=== PATIENT | male | born 1945 | race Caucasian/White ===

== ENCOUNTER 2017-09-19 05:07 | Emergency (ER) | payer MEDICARE, OTHER ==
--- NOTE | 2017-09-19 06:24 | EDM.PDOC ---
ED HPI GENERAL MEDICAL PROBLEM - General Chief Complaint: General Stated Complaint: CONFUSED Time Seen by Provider: 09/19/17 05:50 Source of Information: Reports: Patient History Limitations: Reports: No Limitations - History of Present Illness INITIAL COMMENTS - FREE TEXT/NARRATIVE: c/o confusion acute on chronic confusion pt had a left cardotid endarterectomy 1.5y ago, no sxs, arranged after a routine exam and a number of months notes pt with memory problems 1y ago, got mixed up as to day of week at times and holidays works driving for [employer] altho has been doing more driving recently do mild confusion pt up in middle of night 2d ago and turned on lights at 1 AM and got ready for work even though it was too early, he slept for an hour and then got up again to go to work altho it was still too early today the same thing happened, he was up at 4 AM, he could not remember when he was supposed to go to work (8 AM) here he has confusion above some recent and remote issues has had a cough x 1m, saw PCP Dr Nick yesterday, dx with probably postnasal drip, no new meds Rx'ed has seen Dr Floyd, director of [facility] x 1y atho w/u for CA was neg 1y ago, she has evaluated him for CKD of unknown etiology, has been getting Fe infusion q3m and B12 IM q1m h/o SD and stent x 1 retired college [employer], works 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, now works x 3y driving parts for [employer], deanna that has not been a problem has had a tickle in his throat x 1y d/t see application services manager Dr Borden 11/26 pt forgot how to heat up his water for his CPAP machine which he "has done thousands of time" also sees a manager commercial sales from [place] Dr Reyes, reports kidney function is between 46 and 51, is on metformin 850 mg TID [facility] was contacted, they fax'ed labs and CxR from yesterday, A1C 5.1 , vit B12, CxR no acute process c/w 5y ago, nl heart size and shape no labs or XR in [place] not going to work today, I told that pt could not work today and could not drive until cleared by PCP no other sxs except C, throat tickle and memory problems EKG today with SR 72, RBBB, early RWP with R in V3 28 mm, S in V5 8 m, no acute changes, SD 254 mm, no comparison - Related Data Allergies Allergy/AdvReac Type Severity Reaction Status Date / Time Penicillins Allergy Rash Verified 09/19/17 05:26 Home Meds: Home Meds Aspirin 81 mg PO DAILY 09/19/17 [History] Clopidogrel [Plavix] 75 mg PO DAILY 09/19/17 [History] Cyanocobalamin (Vitamin B12) [Vitamin B12] 1,000 mcg IM ASDIRECTED 09/19/17 [ History] Fenofibrate 160 mg PO DAILY 09/19/17 [History] Ferrous Sulfate 325 mg PO BID 09/19/17 [History] Folic Acid 1 mg PO DAILY 09/19/17 [History] Lisinopril 10 mg PO DAILY 09/19/17 [History] Meclizine [Antivert] 25 mg PO TID 09/19/17 [History] Simvastatin 40 mg PO DAILY 09/19/17 [History] acetaZOLAMIDE [Diamox] 250 mg PO BID 09/19/17 [History] metFORMIN [Glucophage] 850 mg PO TID 09/19/17 [History] Past Medical History HEENT History: Reports: Hard of Hearing, Impaired Vision Other HEENT History: on hearing aids, Menier's Dse Cardiovascular History: Reports: Angina, High Cholesterol, Hypertension, SD, Stents Respiratory History: Reports: Sleep Apnea Other Respiratory History: on CPAP Endocrine/Metabolic History: Reports: Diabetes, Type II Hematologic History: Reports: Anemia - Past Surgical History GI Surgical History: Reports: Appendectomy Social & Family History - Family History Family Medical History: Unobtainable - Tobacco Use Smoking Status *Q: Former Smoker Used Tobacco, but Quit: Yes Month/Year Tobacco Last Used: 20 - Caffeine Use Caffeine Use: Reports: Coffee, Tea - Recreational Drug Use Recreational Drug Use: No ED ROS GENERAL - Review of Systems Review Of Systems: See Below Constitutional: Reports: No Symptoms HEENT: Reports: No Symptoms Respiratory: Reports: No Symptoms Cardiovascular: Reports: No Symptoms Endocrine: Reports: No Symptoms GI/Abdominal: Reports: No Symptoms : Reports: No Symptoms Musculoskeletal: Reports: No Symptoms Skin: Reports: No Symptoms Neurological: Reports: Confusion Psychiatric: Reports: No Symptoms Hematologic/Lymphatic: Reports: No Symptoms Immunologic: Reports: No Symptoms ED EXAM, GENERAL - Physical Exam Exam: See Below Exam Limited By: No Limitations General Appearance: Alert, WD/WN, No Apparent Distress, Other (bland affect, difficulty answering most questions, knew year right away, took 10 seconds to name month, new day and date only be looking at watch, knew he was in hospital, could not tell me the name of the hospital, could not remember when he was supposed to go to work today) Eye Exam: Bilateral Eye: EOMI, Normal Inspection, PERRL Ears: Normal External Exam, Normal Canal, Hearing Grossly Normal, Normal TMs, Hearing Loss, Other (hearing aides b/l) Ear Exam: Bilateral Ear: Auricle Normal, Canal Normal, TM normal Nose: Normal Inspection, Normal Mucosa, No Blood Throat/Mouth: Normal Inspection, Normal Lips, Normal Teeth, Normal Gums, Normal Oropharynx, Normal Voice, No Airway Compromise Head: Atraumatic, Normocephalic Neck: Normal Inspection, Supple, Non-Tender, Full Range of Motion, Other (old vertical scar on L). No: Lymphadenopathy (R), Lymphadenopathy (L) Respiratory/Chest: No Respiratory Distress, Lungs Clear, Normal Breath Sounds, No Accessory Muscle Use, Chest Non-Tender Cardiovascular: Normal Peripheral Pulses, Regular Rate, Rhythm, No Edema, No Gallop, No Murmur, No Rub, Other (2+ DP pulses b/l, 2/6 INEZ at LSB, quiet precordium) GI/Abdominal: Soft, Non-Tender, No Distention Back Exam: Normal Inspection, Full Range of Motion, NT Extremities: Normal Inspection, Normal Range of Motion, Non-Tender, No Pedal Edema Neurological: Alert, CN II-XII Intact, Normal Reflexes, No Motor/Sensory Deficits, Other (biceps DTR 2+, difficulty following instructions for ALHAJI, no dysmetria, no tremor) Psychiatric: Flat Affect Skin Exam: Warm, Dry, Intact, Normal Color, No Rash Lymphatic: No Adenopathy Course - Vital Signs Last Recorded V/S: Last Vital Signs Temp 37.4 C 09/19/17 05:10 Pulse 88 09/19/17 05:10 Resp 18 09/19/17 07:24 BP 154/55 H 09/19/17 07:24 Pulse Ox 100 09/19/17 07:24 - Orders/Labs/Meds Orders: Active Orders 24 hr Category Date Time Status EKG Documentation Completion [RC] ASDIRECTED Care 09/19/17 06:35 Ordered Head wo Cont [CT] Stat Exams 09/19/17 07:26 Taken URINALYSIS W/MICROSCOPIC [UA W/MICROSCOPIC] [URIN] Stat Lab 09/19/17 06:26 Ordered EKG 12 Lead [EK] Routine Ther 09/19/17 06:35 Ordered Labs: Laboratory Tests 09/19/17 09/19/17 09/19/17 Range/Units 06:35 06:35 06:35 WBC 8.5 (4.5-12.0) X10-3/uL RBC 4.07 L (4.30-5.75) x10(6)uL Hgb 10.9 L (11.5-15.5) g/dL Hct 33.3 (30.0-51.3) % MCV 81.8 (80-96) fL MCH 26.8 L (27.7-33.6) pg MCHC 32.8 (32.2-35.4) g/dL RDW 15.4 (11.5-15.5) % Plt Count 197 (125-369) X10(3)uL MPV 7.6 (7.4-10.4) fL Neut % (Auto) 82.1 H (46-82) % Lymph % (Auto) 7.2 L (13-37) % [place] % (Auto) 10.4 (4-12) % Eos % (Auto) 0 L (1.0-5.0) % Baso % (Auto) 0 (0-2) % Neut # (Auto) 7.0 (1.6-8.3) # Lymph # (Auto) 0.6 (0.6-5.0) # [place] # (Auto) 0.9 (0.0-1.3) # Eos # (Auto) 0.0 (0.0-0.8) # Baso # (Auto) 0.0 (0.0-0.2) # PT 11.2 H (8.7-11.1) INR 1.11 (0.89-1.13) Sodium 130 L (135-145) mmol/L Potassium 3.5 (3.5-5.3) mmol/L Chloride 99 L (100-110) mmol/L Carbon Dioxide 19 L (21-32) mmol/L BUN 20 H (7-18) mg/dL Creatinine 1.4 H (0.70-1.30) mg/dL Est Cr Clr Drug Dosing 50.76 mL/min Estimated GFR (MDRD) 50 L (>60) BUN/Creatinine Ratio 14.3 (9-20) Glucose 108 (80-116) mg/dL Calcium 8.7 (8.6-10.2) mg/dL Total Bilirubin 0.4 (0.1-1.3) mg/dL AST 25 (5-25) IU/L ALT 21 (12-36) U/L Alkaline Phosphatase 38 L (56-112) IU/L Troponin I (<0.017-0.056) ng/mL C-Reactive Protein (0.5-0.9) mg/dL NT-Pro-B Natriuret Pep (<=125) pg/mL Total Protein 6.7 (6.0-8.0) g/dL Albumin 3.8 (3.2-4.6) g/dL Globulin 2.9 g/dL Albumin/Globulin Ratio 1.3 TSH, Ultra Sensitive (0.36-3.74) IU/mL Urine Color (YELLOW) Urine Appearance (CLEAR) Urine pH (5.0-6.5) Ur Specific [place] (1.010-1.025) Urine Protein (NEGATIVE) mg/dL Urine Glucose (UA) (NEGATIVE) mg/dL Urine Ketones (NEGATIVE) mg/dL Urine Occult Blood (NEGATIVE) Urine Nitrite (NEGATIVE) Urine Bilirubin (NEGATIVE) Urine Urobilinogen (NEGATIVE) mg/dL Ur Leukocyte Esterase (NEGATIVE) Urine WBC (0) Ur Squamous Epith Cells (NS,R,O) Urine Bacteria (NS) 09/19/17 09/19/17 09/19/17 Range/Units 06:35 06:35 06:35 WBC (4.5-12.0) X10-3/uL RBC (4.30-5.75) x10(6)uL Hgb (11.5-15.5) g/dL Hct (30.0-51.3) % MCV (80-96) fL MCH (27.7-33.6) pg MCHC (32.2-35.4) g/dL RDW (11.5-15.5) % Plt Count (125-369) X10(3)uL MPV (7.4-10.4) fL Neut % (Auto) (46-82) % Lymph % (Auto) (13-37) % [place] % (Auto) (4-12) % Eos % (Auto) (1.0-5.0) % Baso % (Auto) (0-2) % Neut # (Auto) (1.6-8.3) # Lymph # (Auto) (0.6-5.0) # [place] # (Auto) (0.0-1.3) # Eos # (Auto) (0.0-0.8) # Baso # (Auto) (0.0-0.2) # PT (8.7-11.1) INR (0.89-1.13) Sodium (135-145) mmol/L Potassium (3.5-5.3) mmol/L Chloride (100-110) mmol/L Carbon Dioxide (21-32) mmol/L BUN (7-18) mg/dL Creatinine (0.70-1.30) mg/dL Est Cr Clr Drug Dosing mL/min Estimated GFR (MDRD) (>60) BUN/Creatinine Ratio (9-20) Glucose (80-116) mg/dL Calcium (8.6-10.2) mg/dL Total Bilirubin (0.1-1.3) mg/dL AST (5-25) IU/L ALT (12-36) U/L Alkaline Phosphatase (56-112) IU/L Troponin I 0.034 (<0.017-0.056) ng/mL C-Reactive Protein 6.2 H* (0.5-0.9) mg/dL NT-Pro-B Natriuret Pep 523 H (<=125) pg/mL Total Protein (6.0-8.0) g/dL Albumin (3.2-4.6) g/dL Globulin g/dL Albumin/Globulin Ratio TSH, Ultra Sensitive 0.68 (0.36-3.74) IU/mL Urine Color Yellow (YELLOW) Urine Appearance Clear (CLEAR) Urine pH 6.0 (5.0-6.5) Ur Specific [place] 1.015 (1.010-1.025) Urine Protein Negative (NEGATIVE) mg/dL Urine Glucose (UA) Normal (NEGATIVE) mg/dL Urine Ketones Negative (NEGATIVE) mg/dL Urine Occult Blood Negative (NEGATIVE) Urine Nitrite Negative (NEGATIVE) Urine Bilirubin Negative (NEGATIVE) Urine Urobilinogen Normal (NEGATIVE) mg/dL Ur Leukocyte Esterase Negative (NEGATIVE) Urine WBC 0-5 (0) Ur Squamous Epith Cells Occasional (NS,R,O) Urine Bacteria Few H (NS) - Re-Assessments/Exams Free Text/Narrative Re-Assessment/Exam: 09/19/17 08:[address] neg, reviewed with pt and , labs without acute process identified, does have inc'd CRP 6.2 of uncertain clinical sig, no evidence of infection does have HF with inc'd BNP and Na 130, both likely chronic no comparison labs available reports that pt's 78 yo bro has severe dementia pt with likely early to moderate dementia Departure - Departure Time of Disposition: 08:24 Disposition: Admitted As Inpatient 66 Condition: Good Clinical Impression: Memory changes, Elevated C-reactive protein (CRP), Hyponatremia, Heart failure , Hyponatremia, Anemia - Discharge Information Referrals: Dylon Nick MD [Primary Care Provider] - Forms: ED Department Discharge Additional Instructions: Continue current meds. See Dr Nikc in next 2 days. No work or driving until cleared by Dr Nick to do so. Return to ED if you are feeling worse or develop additional symptoms. - My Orders Last 24 Hours: My Active Orders 09/19/17 06:26 URINALYSIS W/MICROSCOPIC [UA W/MICROSCOPIC] [URIN] Stat 09/19/17 06:35 EKG Documentation Completion [RC] ASDIRECTED EKG 12 Lead [EK] Routine 09/19/17 07:26 Head wo Cont [CT] Stat - Assessment/Plan Last 24 Hours: My Active Orders 09/19/17 06:26 URINALYSIS W/MICROSCOPIC [UA W/MICROSCOPIC] [URIN] Stat 09/19/17 06:35 EKG Documentation Completion [RC] ASDIRECTED EKG 12 Lead [EK] Routine 09/19/17 07:26 Head wo Cont [CT] Stat
== END 2017-09-19 08:46 | disposition critical access hospital (66) ==
LOC: FB.ED 05:07
DX: R41.3 Other amnesia (principal); I11.0 Hypertensive heart disease with heart failure; I50.9 Heart failure, unspecified; R79.82 Elevated C-reactive protein (CRP); E87.1 Hypo-osmolality and hyponatremia; E11.9 Type 2 diabetes mellitus without complications; I25.2 Old myocardial infarction; Z88.0 Allergy status to penicillin; Z79.82 Long term (current) use of aspirin; Z79.899 Other long term (current) drug therapy; Z79.84 Long term (current) use of oral hypoglycemic drugs; Z87.891 Personal history of nicotine dependence
CPT/HCPCS: 36415; 70450; 70551; 80053; 81001; 83880; 84443; 84484; 85025; 85610; 86140; 93005; 99284

== ENCOUNTER 2020-12-28 20:42 | Emergency (ER) | payer MEDICARE, OTHER ==
--- NOTE | 2020-12-28 21:47 | EDM.PDOC ---
ED HPI GENERAL MEDICAL PROBLEM - General Stated Complaint: PATIENT BELIEVES THEY HAVE BLOOD COT Time Seen by Provider: 12/28/20 20:42 Source of Information: Reports: Patient, Family History Limitations: Reports: No Limitations - History of Present Illness INITIAL COMMENTS - FREE TEXT/NARRATIVE: c/o R calf pain goes on treadmill 15 min 2x/d, on treadmill and had pain in R calf pt has Alzheimer's per with h/o DVT x 2, pt not on anticoagulants, no prior DVTs h/o NV x 1, h/o R carotid endarterectomy Left Posterior Leg Pain Score (Numeric/FACES): 7 - Related Data Allergies Allergy/AdvReac Type Severity Reaction Status Date / Time Penicillins Allergy Rash Verified 09/19/17 05:26 Home Meds: Home Meds Aspirin 81 mg PO DAILY 09/19/17 [History] Clopidogrel [Plavix] 75 mg PO DAILY 09/19/17 [History] Cyanocobalamin (Vitamin B12) [Vitamin B12] 1,000 mcg IM ASDIRECTED 09/19/17 [History] Fenofibrate 160 mg PO DAILY 09/19/17 [History] Ferrous Sulfate 325 mg PO BID 09/19/17 [History] Folic Acid 1 mg PO DAILY 09/19/17 [History] Lisinopril 10 mg PO DAILY 09/19/17 [History] Meclizine [Antivert] 25 mg PO TID 09/19/17 [History] Simvastatin 40 mg PO DAILY 09/19/17 [History] acetaZOLAMIDE [Diamox] 250 mg PO BID 09/19/17 [History] metFORMIN [Glucophage] 850 mg PO TID 09/19/17 [History] Past Medical History HEENT History: Reports: Hard of Hearing, Impaired Vision Other HEENT History: on hearing aids, Menier's Dse Cardiovascular History: Reports: Angina, High Cholesterol, Hypertension, NV, Stents Respiratory History: Reports: Sleep Apnea Other Respiratory History: on CPAP Endocrine/Metabolic History: Reports: Diabetes, Type II Hematologic History: Reports: Anemia - Past Surgical History GI Surgical History: Reports: Appendectomy Social & Family History - Family History Family Medical History: Unobtainable - Tobacco Use Tobacco Use Status *Q: Unknown Ever Used Tobacco - Caffeine Use Caffeine Use: Reports: None Review of Systems - Review of Systems Review Of Systems: See Below Constitutional: Reports: No Symptoms Eyes: Reports: No Symptoms Ears: Reports: No Symptoms Nose: Reports: No Symptoms Mouth/Throat: Reports: No Symptoms Respiratory: Reports: No Symptoms Cardiovascular: Reports: No Symptoms GI/Abdominal: Reports: No Symptoms Genitourinary: Reports: No Symptoms Musculoskeletal: Reports: Other (R calf pain) Skin: Reports: No Symptoms Neurological: Reports: No Symptoms Psychiatric: Reports: No Symptoms ED EXAM, GENERAL - Physical Exam Exam: See Below Exam Limited By: No Limitations General Appearance: Alert, WD/WN Ears: Normal External Exam Nose: Normal Inspection Throat/Mouth: Normal Inspection Head: Atraumatic Neck: Normal Inspection Respiratory/Chest: No Respiratory Distress, Lungs Clear, Normal Breath Sounds, Chest Non-Tender Cardiovascular: Regular Rate, Rhythm, No Edema GI/Abdominal: Soft Back Exam: Normal Inspection, Full Range of Motion Extremities: Normal Inspection, Normal Range of Motion, Non-Tender, No Pedal Edema, Other (muscular calves b/l c/w regular w/u on treadmill, no cords, no homans, no point tender, no edema, walks without limp) Neurological: Alert, No Motor/Sensory Deficits Psychiatric: Normal Affect, Normal Mood, Other (poor memory, gets mixed up) Skin Exam: Warm, Dry, Intact, Normal Color, No Rash Lymphatic: No Adenopathy Course - Vital Signs Last Recorded V/S: Last Vital Signs Temp 36.8 C 12/28/20 20:56 Pulse 48 L 12/28/20 20:56 Resp 18 12/28/20 20:56 BP 167/54 H 12/28/20 20:56 Pulse Ox 100 12/28/20 20:56 - Orders/Labs/Meds Labs: Laboratory Tests 12/28/20 12/28/20 12/28/20 Range/Units 21:00 21:00 21:00 WBC 6.9 (3.2-10.1) x10-3/uL RBC 3.41 L (3.90-5.90) x10(6)uL Hgb 9.9 L (12.9-17.7) g/dL Hct 28.4 L (38.3-50.1) % MCV 83.4 (80.8-98.7) fL MCH 29.1 (27.0-33.3) pg MCHC 34.8 (28.7-35.3) g/dL RDW 16.6 H (12.4-15.0) % Plt Count 175 (117-477) x10(3)uL MPV 7.9 (6.7-11.0) fL Neut % (Auto) 74.0 H (40.3-71.8) % Lymph % (Auto) 15.3 L (15.8-45.3) % [place] % (Auto) 7.8 (5.5-15.2) % Eos % (Auto) 2.4 (0.1-6.8) % Baso % (Auto) 0.5 (0.3-3.8) % Neut # (Auto) 5.1 (1.7-6.9) x10-3/uL Lymph # (Auto) 1.1 (0.5-4.5) x10-3/uL [place] # (Auto) 0.5 (0.0-1.2) x10-3/uL Eos # (Auto) 0.2 (0.0-0.6) x10-3/uL Baso # (Auto) 0.0 (0.0-0.3) x10-3/uL D-Dimer, Quantitative 0.42 (0.0-0.59) mg/LFEU Sodium 141 D (135-145) mmol/L Potassium 3.7 (3.5-5.3) mmol/L Chloride 102 (100-110) mmol/L Carbon Dioxide 26 (21-32) mmol/L BUN 23 H (7-18) mg/dL Creatinine 1.3 (0.70-1.30) mg/dL Est Cr Clr Drug Dosing 53.89 mL/min Estimated GFR (MDRD) 54 L (>60) BUN/Creatinine Ratio 17.7 (9-20) Glucose 131 H (80-116) mg/dL Calcium 9.0 (8.6-10.2) mg/dL Total Bilirubin 0.6 (0.1-1.3) mg/dL AST 14 D (5-25) IU/L ALT 19 (12-36) U/L Alkaline Phosphatase 75 (56-112) IU/L Total Protein 7.0 (6.0-8.0) g/dL Albumin 3.8 (3.2-4.6) g/dL Globulin 3.2 g/dL Albumin/Globulin Ratio 1.2 - Re-Assessments/Exams Free Text/Narrative Re-Assessment/Exam: 12/28/20 22:05 d-dimer neg, hx and PE and labs put DVT risk extremely low insisted on a RLE u/s which was ordered for tomorrow as u/s tech will be here tomorrow impatient throughout visit even though pt seen by myself as soon as registration put pt in room (prior to RN) and quite unhappy, asking what she should do it he has pain tonight yet had no pain or swell or tenderness, walked easily without discomfort state that they would not use heat as recommended, would not use apap as recommended, she provided no reason or rationale for declining this explanations asked for no clarification of medical recommendations, repeatedly stated her opinion and of what she wanted done written for RLE venous duplex u/s, Jose Angel PLATT materials engineering technician notified by phone by [facility] K[facility]D Departure - Departure Time of Disposition: 21:58 Disposition: Home, Self-Care 01 Condition: Good Clinical Impression: Right calf pain, Strain of right calf muscle - Discharge Information *PRESCRIPTION DRUG MONITORING PROGRAM REVIEWED*: Not Applicable *COPY OF PRESCRIPTION DRUG MONITORING REPORT IN PATIENT EMMA: Not Applicable Instructions: Muscle Strain Referrals: Dylon Nick MD [Primary Care Provider] - Additional Instructions: Use heat for 10 minutes 4 times a day for 2 days, longer if needed. Take acetaminophen 500 mg 2 tabs 4 times a day for 5 days, longer if needed. Radiology will call you tomorrow morning with a time for the ultrasound. Sepsis Event Note (ED) - Evaluation Sepsis Screening Result: No Definite Risk - Focused Exam Vital Signs: Vital Signs Temp Pulse Resp BP Pulse Ox 12/28/20 20:56 36.8 C 48 L 18 167/54 H 100
== END 2020-12-28 22:05 | disposition home or self-care (01) ==
LOC: FB.ED 20:42
DX: S86.911A Strain of unspecified muscle(s) and tendon(s) at lower leg level, right leg, initial encounter (principal); E78.00 Pure hypercholesterolemia, unspecified; I10 Essential (primary) hypertension; I25.2 Old myocardial infarction; E11.9 Type 2 diabetes mellitus without complications; D64.9 Anemia, unspecified; Z88.0 Allergy status to penicillin; Z79.82 Long term (current) use of aspirin; Z79.02 Long term (current) use of antithrombotics/antiplatelets; Z79.84 Long term (current) use of oral hypoglycemic drugs; Z79.899 Other long term (current) drug therapy; Z86.718 Personal history of other venous thrombosis and embolism; X58.XXXA Exposure to other specified factors, initial encounter; Y93.A1 Activity, exercise machines primarily for cardiorespiratory conditioning
CPT/HCPCS: 36415; 80053; 85025; 85379; 99283

== ENCOUNTER 2021-06-23 17:04 | Inpatient (IN) | payer MEDICARE, OTHER ==
[2021-06-23] MEDS ORDERED: Sodium Chloride 0.9% 10 ML Syringe FLUSH PRN (17:42)
[2021-06-23] MEDS ORDERED: Ondansetron 4 MG/2 ML SDV IV PRN (19:53)
[2021-06-23] MEDS ORDERED: Sodium Chloride 0.9% 1,000 ML IV SCH (20:00)
[2021-06-23] MEDS ORDERED: Ascorbic Acid 500 MG Tab PO SCH (21:00)
[2021-06-23] MEDS ORDERED: Donepezil 10 MG Tab PO SCH ×2 (21:00→21:45)
[2021-06-23] MEDS ORDERED: Ferrous Sulfate 325 MG Tab PO SCH (21:00)
[2021-06-23] MEDS: Enoxaparin 40 MG/0.4 ML Syringe SUBCUT SCH (21:56)
[2021-06-23] MEDS: ASCORBIC ACID 250 MG PO SCH (21:57)
[2021-06-23] MEDS: FERROUS SULFATE 325 MG PO SCH (21:57)
[2021-06-24] MEDS ORDERED: LORazepam 2 MG/ML SDV IM ONE (01:10)
[2021-06-24] MEDS ORDERED: OLANZapine 10 MG Vial IM ONE (01:15)
[2021-06-24] MEDS: FERROUS SULFATE 325 MG PO SCH (07:27)
[2021-06-24] MEDS: amLODIPine 10 MG Tab PO SCH (08:31)
[2021-06-24] MEDS: ASCORBIC ACID 250 MG PO SCH (08:37)
[2021-06-24] MEDS: Simvastatin 40 MG Tab PO SCH (08:39)
[2021-06-24] MEDS: Folic Acid 1 MG Tab PO SCH (08:39)
[2021-06-24] MEDS: Hydrochlorothiazide 12.5 MG Cap PO SCH (11:36)
[2021-06-24] MEDS ORDERED: Citalopram 20 MG Tab PO SCH (12:00)
[2021-06-24] MEDS ORDERED: LORazepam 1 MG Tab PO PRN (14:42)
[2021-06-24] MEDS: Cholecalciferol (Vitamin D3) 25 MCG Tab PO SCH (14:59)
[2021-06-24] MEDS: Thiamine 100 MG Tab PO SCH (14:59)
[2021-06-24] MEDS: Ferrous Sulfate 325 MG Tab PO SCH (18:23)
[2021-06-24] MEDS: Enoxaparin 40 MG/0.4 ML Syringe SUBCUT SCH (20:01)
[2021-06-24] MEDS: Haloperidol 5 MG Tab PO SCH (20:01)
[2021-06-24] MEDS: Donepezil 10 MG Tab PO SCH (20:01)
[2021-06-24] MEDS: Ascorbic Acid 500 MG Tab PO SCH (20:04)
[2021-06-24] MEDS ORDERED: QUEtiapine 25 MG Tab PO SCH (21:00)
[2021-06-25] MEDS: Ferrous Sulfate 325 MG Tab PO SCH ×2 (06:46→17:42)
[2021-06-25] MEDS: Cholecalciferol (Vitamin D3) 25 MCG Tab PO SCH (09:11)
[2021-06-25] MEDS: Simvastatin 40 MG Tab PO SCH (09:11)
[2021-06-25] MEDS: amLODIPine 10 MG Tab PO SCH (09:12)
[2021-06-25] MEDS: Thiamine 100 MG Tab PO SCH (09:13)
[2021-06-25] MEDS: Hydrochlorothiazide 12.5 MG Cap PO SCH (09:13)
[2021-06-25] MEDS: Folic Acid 1 MG Tab PO SCH (09:13)
[2021-06-25] MEDS: Ascorbic Acid 500 MG Tab PO SCH ×2 (09:14→21:05)
[2021-06-25] MEDS: Enoxaparin 40 MG/0.4 ML Syringe SUBCUT SCH (21:04)
[2021-06-25] MEDS: Haloperidol 5 MG Tab PO SCH (21:04)
[2021-06-25] MEDS: Donepezil 10 MG Tab PO SCH (21:04)
[2021-06-26] MEDS: Ferrous Sulfate 325 MG Tab PO SCH ×2 (06:29→17:26)
[2021-06-26] MEDS: Hydrochlorothiazide 12.5 MG Cap PO SCH (09:49)
[2021-06-26] MEDS: Cholecalciferol (Vitamin D3) 25 MCG Tab PO SCH (09:49)
[2021-06-26] MEDS: Folic Acid 1 MG Tab PO SCH (09:49)
[2021-06-26] MEDS: amLODIPine 10 MG Tab PO SCH (09:50)
[2021-06-26] MEDS: Ascorbic Acid 500 MG Tab PO SCH ×2 (09:51→20:46)
[2021-06-26] MEDS: Simvastatin 40 MG Tab PO SCH (09:54)
[2021-06-26] MEDS: Thiamine 100 MG Tab PO SCH (09:54)
[2021-06-26] MEDS: Haloperidol 5 MG Tab PO SCH (20:46)
[2021-06-26] MEDS: Enoxaparin 40 MG/0.4 ML Syringe SUBCUT SCH (20:46)
[2021-06-26] MEDS: Donepezil 10 MG Tab PO SCH (20:46)
[2021-06-27] MEDS: Ferrous Sulfate 325 MG Tab PO SCH (06:29)
[2021-06-27] MEDS: Ascorbic Acid 500 MG Tab PO SCH (08:21)
[2021-06-27] MEDS: Simvastatin 40 MG Tab PO SCH (08:22)
[2021-06-27] MEDS: amLODIPine 10 MG Tab PO SCH (08:22)
[2021-06-27] MEDS: Hydrochlorothiazide 12.5 MG Cap PO SCH (08:22)
[2021-06-27] MEDS: Thiamine 100 MG Tab PO SCH (08:22)
[2021-06-27] MEDS: Folic Acid 1 MG Tab PO SCH (08:23)
[2021-06-27] MEDS: Cholecalciferol (Vitamin D3) 25 MCG Tab PO SCH (08:23)
== END 2021-06-27 15:40 | disposition home or self-care (01) | DRG 57 ==
LOC: FB.ED 17:04 → FB.MS 19:53 → OBSVTOIN 06-24 14:42
PROVIDERS: ADMIT Student in an Organized Health Care Education/Training Program; ATTEND Family Medicine
DX: G30.9 Alzheimer's disease, unspecified (principal); F02.81 Dementia in other diseases classified elsewhere, unspecified severity, with behavioral disturbance; F02.80 Dementia in other diseases classified elsewhere, unspecified severity, without behavioral disturbance, psychotic disturbance, mood disturbance, and anxiety; I50.9 Heart failure, unspecified; E87.1 Hypo-osmolality and hyponatremia; E86.0 Dehydration; H91.93 Unspecified hearing loss, bilateral; E11.9 Type 2 diabetes mellitus without complications; I25.10 Atherosclerotic heart disease of native coronary artery without angina pectoris; G47.30 Sleep apnea, unspecified; D09.0 Carcinoma in situ of bladder; E78.5 Hyperlipidemia, unspecified; I11.0 Hypertensive heart disease with heart failure; Z20.822 Contact with and (suspected) exposure to COVID-19; H91.90 Unspecified hearing loss, unspecified ear; H54.7 Unspecified visual loss; E78.00 Pure hypercholesterolemia, unspecified; G89.29 Other chronic pain; M54.9 Dorsalgia, unspecified; N18.30 Chronic kidney disease, stage 3 unspecified; D64.9 Anemia, unspecified; F32.A Depression, unspecified; Z88.0 Allergy status to penicillin; Z85.51 Personal history of malignant neoplasm of bladder; Z79.84 Long term (current) use of oral hypoglycemic drugs; Z79.899 Other long term (current) drug therapy; Z87.891 Personal history of nicotine dependence; I25.2 Old myocardial infarction; Z95.5 Presence of coronary angioplasty implant and graft; Z90.49 Acquired absence of other specified parts of digestive tract; Z97.4 Presence of external hearing-aid; Z85.46 Personal history of malignant neoplasm of prostate
CPT/HCPCS: 36415 ×2; 71045; 80048; 80053; 81001; 82947; 83880; 84443; 84484; 85025 ×2; 93005; A9270 ×10; J1650; J2060; J3490; J7030; Q3014; U0002; 93010; 97116-GP; 97161-GP; 97165-GO; 99284